=== PATIENT | female | born 1965 | race Caucasian/White ===

== ENCOUNTER 2020-12-06 11:10 | Emergency (ER) | payer OTHER ==
[~2020-12-06] VITALS: Ht 165.1 cm; Wt 107.5 kg
[~2020-12-06 11:10] MED LIST: CLON0.1T79 PO; GEMF600T6 PO; GLU500 PO; METO50TA20 PO
[2020-12-06 11:15] VITALS: BP 125/60
--- NOTE | 2020-12-06 11:20 | NUR ---
55 YO F BIB SELF FOR C/C OF 5/10 L KNEE PAIN FROM CYSTS ON POLITEAL REGION AND FRONT OF KNEE X1 MONTH. PT HAS BEEN SEEN FOR THIS AND IS WAITING IN INSURANCE APPROVAL TO SEE A SPECIALIST. PT HAS BEEN TAKING 800MG OF IBUPROFEN WITH SOME RELIEF OF PAIN. PT HAVING DIFFICULTY AMBULATING DUE TO CYSTS. BED LOCKED AND IN LOWEST POSITION SIDE RAILS X1. Addendum: 12/06/20 at 1153 by [email or web address] 55 YO F BIB SELF FOR C/C OF 5/10 L KNEE PAIN FROM CYSTS ON POPLITEAL REGION AND FRONT OF KNEE X1 MONTH. PT HAS BEEN SEEN FOR THIS AND IS WAITING IN INSURANCE APPROVAL TO SEE A SPECIALIST. PT HAS BEEN TAKING 800MG OF IBUPROFEN WITH SOME RELIEF OF PAIN. PT HAVING DIFFICULTY AMBULATING DUE TO CYSTS. BED LOCKED AND IN LOWEST POSITION SIDE RAILS X1.
--- NOTE | 2020-12-06 11:45 | NUR ---
PT TAKEN TO X-RAY VIA W/C.
[2020-12-06] MEDS ORDERED: KETOROLAC 30 MG/ML VIAL IM ONE (12:25)
[2020-12-06 12:55] VITALS: BP 125/60
--- NOTE | 2020-12-06 12:55 | NUR ---
Patient discharged with v/s stable. Written and verbal after care instructions given and explained. Patient alert, oriented and verbalized understanding of instructions. Ambulatory with steady gait. All questions addressed prior to discharge. ID band removed. Patient advised to follow up with PMD. Rx of NORCO, MOTRIN given. Patient educated on indication of medication including possible reaction and side effects. Opportunity to ask questions provided and answered.
[2020-12-06] MEDS ORDERED: ACET-8386 PO (13:40)
== END 2020-12-06 12:55 | disposition home or self-care (01) ==
LOC: MED 11:10
DX: M25.562 Pain in left knee (principal); E11.9 Type 2 diabetes mellitus without complications; I10 Essential (primary) hypertension; Z79.899 Other long term (current) drug therapy
CPT/HCPCS: 73562; 96372; 99283; J1885

== ENCOUNTER 2021-06-21 10:17 | Emergency (ER) | payer OTHER ==
[~2021-06-21] VITALS: Ht 162.6 cm; Wt 122.5 kg
[~2021-06-21 10:17] MED LIST changes: +ACET-8386 PO
[2021-06-21 10:24] VITALS: BP 141/86
--- NOTE | 2021-06-21 10:35 | NUR ---
55 y/o F BIB self from home with c/c R knee and medial thigh pain x 2 weeks. Patient A&Ox4, reports swelling to R popliteal and medial thigh. Patient reports pain initially 3/10 alleviated to 0/10 with Ibuprofen 800mg 1 hour ago. Patient denies pain, N/V/D, injury, fall, trauma, calf pain, SOB. +ROM +Pedal pulses (-) numbness/tingling, loss of sensation. Patient reports using cane to ambulate lately. States acute onset and was at home when pain began. VSS; no distress noted. Bed locked in lowest position, side rails x 1, call light in reach. PMH: DM, breast CA Meds: Glipizide, metformin, actos NKA Sx: Breast cancer, cholecystectomy
--- NOTE | 2021-06-21 10:39 | NUR ---
Patient ambulated with cane, steady/even gait to bed 09.
--- NOTE | 2021-06-21 10:43 | NUR ---
Dr. Bhatt is evaluating patient at bedside.
--- NOTE | 2021-06-21 11:00 | NUR ---
US tech at bedside
--- NOTE | 2021-06-21 11:48 | NUR ---
Patient ambulated to restroom with steady/even gait.
--- NOTE | 2021-06-21 12:05 | NUR ---
Patient resting in position of comfort. VSS; RR even/unlabored. Bed locked in lowest position, side rails x1, call light in reach.
[2021-06-21] MEDS ORDERED: IBUP-2213 PO (12:22)
[2021-06-21 12:49] VITALS: BP 138/82
== END 2021-06-21 12:47 | disposition home or self-care (01) ==
LOC: MED 10:17
DX: I82.401 Acute embolism and thrombosis of unspecified deep veins of right lower extremity (principal); E11.9 Type 2 diabetes mellitus without complications; Z79.84 Long term (current) use of oral hypoglycemic drugs; Z79.899 Other long term (current) drug therapy; Z85.3 Personal history of malignant neoplasm of breast
CPT/HCPCS: 93971; 99284; Q0092

== ENCOUNTER 2022-05-05 15:02 | Emergency (ER) | payer OTHER ==
[~2022-05-05] VITALS: Ht 165.1 cm; Wt 121.6 kg
[~2022-05-05 15:02] MED LIST changes: +IBUP-2213 PO
[2022-05-05 15:04] VITALS: BP 174/100
[2022-05-05] MEDS ORDERED: ASPIRIN 325 MG TAB PO ONE (15:15)
[2022-05-05 15:31] LABS: BASOPHILS % (AUTO) 0.5 % (0.0-2.0); EOSINOPHILS # (AUTO) 0.2 K/uL (0-0.4); EOSINOPHILS % (AUTO) 2.9 % (0.0-4.0); HEMATOCRIT 37.9 % (36-48); HEMOGLOBIN 12.2 g/dL (12.0-16.0); LYMPHOCYTES # (AUTO) 2.3 K/uL (2.5-16.5); LYMPHOCYTES % (AUTO) 28.4 % (20.5-51.1); MEAN CORPUSCULAR HEMOGLOBIN 26 pg (27-31); MEAN CORPUSCULAR HGB CONC 32 g/dL (33-37); MEAN CORPUSCULAR VOLUME 81.9 fL (80-94); MONOCYTES # (AUTO) 0.6 K/uL (0.8-1.0); MONOCYTES % (AUTO) 7.9 % (1.7-9.3); NEUTROPHILS # (AUTO) 4.9 K/uL (1.8-7.7); NEUTROPHILS % (AUTO) 60.3 % (42.2-75.2); PLATELET COUNT (AUTO) 394 K/uL (140-450); RED BLOOD CELL COUNT(AUTO) 4.63 MIL/uL (4.20-5.40); WHITE BLOOD COUNT (AUTO) 8.1 K/uL (4.8-10.8)
[2022-05-05 15:50] LABS: PROTHROMBIN TIME 10.7 secs (10.8-13.4)
[2022-05-05 15:52] LABS: ALBUMIN 4.2 g/dL (3.4-5.0); ANION GAP 12.2 (8-16); CARBON DIOXIDE 28.9 mmol/L (21-32); CREATININE 0.7 mg/dL (0.6-1.3); POTASSIUM 4.1 mmol/L (3.5-5.1); TOTAL BILIRUBIN 0.3 mg/dL (0.0-1.0)
--- NOTE | 2022-05-05 16:10 | NUR ---
56 y/o female was referred from Urgent Care to ER with c/o chest pain x 3 days. Patient has 7/10 pressure pain that radiates from left side of chest to back. Patient reports pain is positional. Denies fever, chills, injury, falling or SOB. Medical History: DM, HTN NKDA
--- NOTE | 2022-05-05 16:37 | NUR ---
56/F PRESENTS TO ED WITH C/O CHEST PAIN RADIATING TO HER BACK X3 DAYS. PER PATIENT SHE WENT TO URGENT CARE TODAY FOR SYMPTOMS AND WAS REFERRED TO ED FOR FURTHER EVALUATION. PATIENT DENIES SOB, RECENT INJURY/TRAUMA, FEVERS OR CHILLS.
--- NOTE | 2022-05-05 17:08 | NUR ---
Dr. Colindres re-evaluating patient at bedside.
[2022-05-05] MEDS ORDERED: diazePAM 5 MG TAB PO ONE (17:30)
[2022-05-05] MEDS ORDERED: CYCL-711 PO (17:41)
[2022-05-05] MEDS ORDERED: NAPR-54 PO (17:41)
[2022-05-05 18:40] VITALS: BP 166/77
--- NOTE | 2022-05-05 18:40 | NUR ---
Patient discharged with v/s stable. Written and verbal after care instructions given. Patient alert, oriented and verbalized understanding of instructions. Ambulatory with steady gait. All questions addressed prior to discharge. ID band removed. Patient advised to follow up with PMD. Rx of Flexeril and Naproxen given. Opportunity to ask questions provided and answered.
--- NOTE | 2022-05-05 18:45 | NUR ---
The patient's care was reviewed and supervised by Riri Meier RN.
== END 2022-05-05 18:14 | disposition home or self-care (01) ==
LOC: MED 15:02
DX: M54.6 Pain in thoracic spine (principal); R07.9 Chest pain, unspecified; E11.9 Type 2 diabetes mellitus without complications; I10 Essential (primary) hypertension; Z85.3 Personal history of malignant neoplasm of breast; Z79.84 Long term (current) use of oral hypoglycemic drugs; Z79.899 Other long term (current) drug therapy
CPT/HCPCS: 36415; 71045; 80053; 83880; 84484; 85025; 85610; 85730; 93005; 99285

== ENCOUNTER 2023-01-06 18:42 | Emergency (ER) | payer OTHER ==
[~2023-01-06] VITALS: Ht 167.6 cm; Wt 126.1 kg
[~2023-01-06 18:42] MED LIST changes: -ACET-8386 PO; +ACET-8905 PO; +CYCL-711 PO; +NAPR-54 PO
[2023-01-06 18:48] VITALS: BP 153/73
[2023-01-06] MEDS ORDERED: KETOROLAC 15 MG/ML VIAL IM ONE (19:15)
[2023-01-06 19:28] LABS: BASOPHILS % (AUTO) 0.4 % (0.0-2.0); EOSINOPHILS # (AUTO) 0.1 K/uL (0-0.4); EOSINOPHILS % (AUTO) 1.9 % (0.0-4.0); HEMATOCRIT 34.9 % (36-48); HEMOGLOBIN 11.5 g/dL (12.0-16.0); LYMPHOCYTES # (AUTO) 2.1 K/uL (2.5-16.5); LYMPHOCYTES % (AUTO) 32.5 % (20.5-51.1); MEAN CORPUSCULAR HEMOGLOBIN 27 pg (27-31); MEAN CORPUSCULAR HGB CONC 33 g/dL (33-37); MEAN CORPUSCULAR VOLUME 81.4 fL (80-94); MONOCYTES # (AUTO) 0.5 K/uL (0.8-1.0); MONOCYTES % (AUTO) 8.4 % (1.7-9.3); NEUTROPHILS # (AUTO) 3.6 K/uL (1.8-7.7); NEUTROPHILS % (AUTO) 56.8 % (42.2-75.2); PLATELET COUNT (AUTO) 306 K/uL (140-450); RED BLOOD CELL COUNT(AUTO) 4.29 MIL/uL (4.20-5.40); RED CELL DISTRIBUTION WIDTH 15.9 % (11.6-13.7); WHITE BLOOD COUNT (AUTO) 6.4 K/uL (4.8-10.8)
[2023-01-06 19:41] LABS: ANION GAP 12.9 (8-16); CARBON DIOXIDE 28.6 mmol/L (21-32); CREATININE 0.8 mg/dL (0.6-1.3); POTASSIUM 4.5 mmol/L (3.5-5.1)
[2023-01-06 21:12] VITALS: BP 153/73
--- NOTE | 2023-01-06 21:12 | NUR ---
Patient discharged with v/s stable. Written and verbal after care instructions given and explained. Patient verbalized understanding. Ambulatory with steady gait. All questions addressed prior to discharge. Advised to follow up with PMD.
== END 2023-01-06 21:12 | disposition home or self-care (01) ==
LOC: MED 18:42
DX: R07.9 Chest pain, unspecified (principal); E11.9 Type 2 diabetes mellitus without complications; I10 Essential (primary) hypertension; Z85.3 Personal history of malignant neoplasm of breast; Z79.899 Other long term (current) drug therapy; Z79.1 Long term (current) use of non-steroidal anti-inflammatories (NSAID)
CPT/HCPCS: 36415; 71045; 80048; 84484; 85025; 93005; 96372; 99285; J1885